=== PATIENT | male | born 1980 | race Caucasian/White ===

== ENCOUNTER 2024-08-17 16:59 | Emergency (ER) | payer OTHER ==
[~2024-08-17] VITALS: Ht 170.2 cm; Wt 70.3 kg
[2024-08-17] MEDS ORDERED: SULF1TAB48 PO (18:36)
[2024-08-17] MEDS ORDERED: METR-147 PO (18:36)
[2024-08-17] MEDS ORDERED: LIDOCAINE 1%-EPI 1:100,000 20 ML VIAL ONE (18:41)
[2024-08-17] MEDS: LIDOCAINE 1%-EPI 1:100,000 50 ML VIAL IJ ONE (19:29)
[2024-08-17 19:33] VITALS: BP 132/78; TEMP 98.6; O2SAT 98
== END 2024-08-17 19:33 | disposition home or self-care (01) ==
LOC: ER 16:59
DX: S61.412A Laceration without foreign body of left hand, initial encounter (principal); Z88.7 Allergy status to serum and vaccine; W54.0XXA Bitten by dog, initial encounter; Y93.89 Activity, other specified; Y92.89 Other specified places as the place of occurrence of the external cause; Y99.8 Other external cause status
CPT/HCPCS: 99283; J3490 ×2